=== PATIENT | female | born 1990 | race Caucasian/White ===

== ENCOUNTER 2016-12-05 13:05 | Emergency (ER) | payer MEDICAID ==
[~2016-12-05] VITALS: Ht 157.5 cm; Wt 52.7 kg
[2016-12-05 14:27] VITALS: BP 94/68
== END 2016-12-05 14:30 | disposition home or self-care (01) ==
LOC: ED 14:26
DX: J20.9 Acute bronchitis, unspecified (principal); H92.09 Otalgia, unspecified ear
CPT/HCPCS: 71020; 99284

== ENCOUNTER 2016-12-23 17:27 | Emergency (ER) | payer MEDICAID ==
[~2016-12-23] VITALS: Ht 157.5 cm; Wt 51.4 kg
[2016-12-23 17:36] VITALS: BP 138/103
== END 2016-12-23 20:10 | disposition left against medical advice (07) ==
LOC: ED 20:04
DX: R51 Headache (principal)
CPT/HCPCS: 99281

== ENCOUNTER 2017-02-23 11:58 | Emergency (ER) | payer MEDICAID ==
[~2017-02-23] VITALS: Ht 157.5 cm; Wt 53.0 kg
[2017-02-23] MEDS ORDERED: DIPHENHYDRAMINE 50 MG/ML, 1ML ONE (12:55)
[2017-02-23] MEDS ORDERED: ONDANSETRON 2MG/ML, 2ML ONE (12:55)
[2017-02-23] MEDS ORDERED: KETOROLAC 30 MG/1 ML IVPush ONE (13:00)
[2017-02-23] MEDS ORDERED: SODIUM CHLORIDE 0.9% 1,000ML IVBOLUS ONE (13:00)
[2017-02-23] MEDS ORDERED: DIPHENHYDRAMINE 50 MG/ML, 1ML IV ONE (13:00)
[2017-02-23] MEDS ORDERED: ONDANSETRON 2MG/ML, 2ML IVPush ONE (13:00)
[2017-02-23] MEDS ORDERED: SODIUM CHLORIDE FLUSH 10ML SYR IVF ONE (13:00)
[2017-02-23 13:23] LABS: ASPARTATE AMINO TRANSFERASE 17 U/L (15-37); BLOOD UREA NITROGEN 12 mg/dL (7-18)
[2017-02-23] MEDS ORDERED: KETOROLAC 30 MG/1 ML ONE (13:30)
[2017-02-23 13:52] LABS: HEMOGLOBIN 15.6 g/dL (11.7-16.4); WHITE BLOOD COUNT 7.1 x10^3/uL (3.4-10)
[2017-02-23 14:24] LABS: PATH.CAST-FLAG NOT PRESENT; SPERM-FLAG NOT PRESENT; SRC-FLAG NOT PRESENT; XTAL-FLAG NOT PRESENT; YLC-FLAG NOT PRESENT
[2017-02-23 15:42] VITALS: BP 104/60
== END 2017-02-23 15:42 | disposition home or self-care (01) ==
LOC: ED 13:21
DX: R10.30 Lower abdominal pain, unspecified (principal); R11.2 Nausea with vomiting, unspecified; R21 Rash and other nonspecific skin eruption
CPT/HCPCS: 36415; 76830; 80053; 81001; 83690; 84703; 85025; 87086; 96361; 96374; 96375; 99285; J1200; J1885; J2405; J7030

== ENCOUNTER 2021-01-14 19:36 | Emergency (ER) | payer MEDICAID, OTHER ==
[~2021-01-14] VITALS: Ht 157.5 cm; Wt 62.6 kg
--- NOTE | 2021-01-14 20:12 | NUR ---
pt presents to ed at 19 weeks and 2 day , with cramping and n/v since early this morning. pt stated her medical records supervisor told her to come in and be evaluated. pt in gown, resting on gurney, and placed on continuous monitoring.
[2021-01-14] MEDS ORDERED: ONDANSETRON 2MG/ML, 2ML ONE (20:44)
[2021-01-14 21:00] VITALS: BP 95/49
[2021-01-14] MEDS ORDERED: ONDANSETRON 2MG/ML, 2ML IVPush ONE (21:00)
[2021-01-14] MEDS ORDERED: SODIUM CHLORIDE 0.9% 1,000ML IVBOLUS ONE (21:00)
[2021-01-14 21:11] LABS: BASOPHILS % (AUTO) 0 % (0-1); EOSINOPHILS % (AUTO) 1 % (1-7); LYMPHOCYTES % (AUTO) 19 % (22-44); MEAN CORPUSCULAR HEMOGLOBIN 31.5 pg (27.0-34.8); MEAN CORPUSCULAR HGB CONC 34.5 g/dL (32.4-35.8); MONOCYTES % (AUTO) 8 % (2-9); NEUTROPHILS % (AUTO) 72 % (42-75); PLATELET COUNT 100 x10^3/uL (130-400); RED BLOOD COUNT 4.28 x10^6/uL (3.82-5.3); RED CELL DISTRIBUTION WIDTH 13.3 % (9.6-15.2)
[2021-01-14 21:13] LABS: ALANINE AMINOTRANSFERASE 17 U/L (12-78); ALBUMIN 3.1 g/dL (3.4-5.0); ANION GAP 8 mmol/L (5-15); CALCIUM 8.2 mg/dL (8.5-10.1); CHLORIDE 106 mmol/L (98-107); CREATININE 0.57 mg/dL (0.55-1.02)
[2021-01-14 21:15] LABS: ALKALINE PHOSPHATASE 57 U/L (45-117); BILIRUBIN,TOTAL 0.7 mg/dL (0.2-1.0); TOTAL PROTEIN 6.9 g/dL (6.4-8.2)
[2021-01-14 21:25] LABS: MICROSCOPIC INDICATED
--- NOTE | 2021-01-14 22:39 | NUR ---
Patient given discharge instructions and they have confirmed that they understand the instructions. Patient ambulatory with steady gait.
== END 2021-01-14 22:41 | disposition home or self-care (01) ==
LOC: ED 22:17
DX: O26.892 Other specified pregnancy related conditions, second trimester (principal); O21.8 Other vomiting complicating pregnancy; R10.30 Lower abdominal pain, unspecified; O99.332 Smoking (tobacco) complicating pregnancy, second trimester; F17.200 Nicotine dependence, unspecified, uncomplicated; Z3A.19 19 weeks gestation of pregnancy
CPT/HCPCS: 36415; 76815; 80053; 81001; 85025; 87086; 96361; 96374; 99284; J2405; J7030